=== PATIENT | male | born 2000 | race Caucasian/White ===

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

== ENCOUNTER 2023-04-05 21:15 | Observation (INO) | payer BC ==
[2023-04-05] MEDS ORDERED: fentaNYL PF 100 MCG/2 ML SYRINGE ONE (21:41)
[2023-04-05] MEDS ORDERED: Midazolam HCl 2 mg/2 ml Vial ONE (21:41)
[2023-04-05] MEDS ORDERED: SUGAMMADEX SODIUM 200 MG/2 ML VIAL ONE (21:41)
[2023-04-05] MEDS ORDERED: PHENYLEPHRINE-NS 100 MCG/ML 10 ML SYRINGE ONE (21:47)
[2023-04-05] MEDS ORDERED: PROPOFOL 200 MG/20 ML VIAL ONE (21:47)
[2023-04-05] MEDS ORDERED: Rocuronium Bromide 10 MG/ML (10ML VIAL) ONE (21:47)
[2023-04-05] MEDS ORDERED: GLYCOPYRROLATE/PF 0.2 MG/ML VIAL ONE (21:47)
[2023-04-05] MEDS ORDERED: Ondansetron PF 4 MG/2 ML Vial ONE (21:47)
[2023-04-05] MEDS ORDERED: Succinylcholine 200 MG/10 ml SYRINGE FS ONE (21:47)
[2023-04-05] MEDS ORDERED: Dexamethasone 20 MG/5 ML VIAL ONE (21:47)
[2023-04-05] MEDS ORDERED: Lidocaine 1% PF 5 ML VIAL ONE (21:47)
[2023-04-05] MEDS ORDERED: Ketorolac Tromethamine 30 MG/ML VIAL ONE (21:47)
[2023-04-05] MEDS ORDERED: Bupivacaine HCl 0.5%/Epinephrine 1:200,000/PF 30 ml Vial ONE (22:04)
[2023-04-05] MEDS ORDERED: Dextrose 5% in Water 1,000 ML IV PRN (22:46)
[2023-04-05] MEDS ORDERED: Ondansetron PF 4 MG/2 ML Vial IVP PRN (22:46)
[2023-04-05] MEDS ORDERED: Promethazine HCl 25 MG/ML VIAL IM PRN ×2 (22:46→23:00)
[2023-04-05] MEDS ORDERED: Calcium Carbonate 500 MG ChewTAB PO PRN (22:46)
[2023-04-05] MEDS ORDERED: Glucagon 1 MG/ML KIT IM PRN (22:46)
[2023-04-05] MEDS ORDERED: Ipratropium/Albuterol 3 ML NEB NEB PRN (22:46)
[2023-04-05] MEDS ORDERED: Morphine 2 MG/ML VIAL SLOW IVP PRN (22:46)
[2023-04-05] MEDS ORDERED: Morphine 4 MG/ML VIAL SLOW IVP PRN (22:46)
[2023-04-05] MEDS ORDERED: Mag-Al 1200 mg/1200 mg/30 ML UDCUP PO PRN (22:46)
[2023-04-05] MEDS ORDERED: hydrALAZINE 20 MG/ML VIAL SLOW IVP PRN (22:46)
[2023-04-05] MEDS ORDERED: Dextrose 50% Abboject 50 ML SYRINGE SLOW IVP PRN (22:46)
[2023-04-05] MEDS ORDERED: Ondansetron HCl/PF 4 MG/2 ML Vial IVP PRN (23:00)
[2023-04-05] MEDS ORDERED: fentaNYL 50 mcg/mL 1 mL Vial ONE ×3 (23:01→23:22)
[2023-04-06 00:03] VITALS: BMI 31.6
[2023-04-06] MEDS: Acetaminophen 325 MG TAB PO PRN ×2 (03:49→09:14)
[2023-04-06 03:59] VITALS: TEMP 97.8
[2023-04-06 08:43] VITALS: BP 119/68
[2023-04-06] MEDS ORDERED: Famotidine 20 MG TAB PO SCH (09:00)
[2023-04-06] MEDS ORDERED: Famotidine/PF 20 mg/2ml Vial SLOW IVP SCH (09:00)
[2023-04-06] MEDS ORDERED: Docusate 100 MG CAP PO SCH (09:00)
== END 2023-04-06 10:30 | disposition home or self-care (01) ==
LOC: SDC 21:15 → SURG B 22:46
PROVIDERS: ADMIT Surgery; ATTEND Surgery
PROC: 0DTJ4ZZ Resection of Appendix, Percutaneous Endoscopic Approach (ICD-10-PCS; principal; 2023-04-05)
DX: K35.80 Unspecified acute appendicitis (principal); I10 Essential (primary) hypertension; F17.200 Nicotine dependence, unspecified, uncomplicated; Z79.899 Other long term (current) drug therapy; Z88.0 Allergy status to penicillin; Z88.2 Allergy status to sulfonamides
CPT/HCPCS: 88304; A4649; J1100; J1885; J2250; J2405; J2704; J3010; J3490

== ENCOUNTER 2025-07-04 15:47 | Emergency (ER) | payer OTHER, BC ==
[2025-07-04 18:44] LABS: #Basophils 0.05 10x3/uL (0.0-0.2); #Eosinophils 0.13 10x3/uL (0.0-0.7); #Monocytes 0.51 10x3/uL (0.11-0.59); #Neutrophils 6.05 10x3/uL (1.40-6.50); %Basophils 0.6 % (0.0-1.0); %Eosinophils 1.5 % (0.0-10.0); %Lymphocytes 24.4 % (21.0-51.0); %Monocytes 5.7 % (0.0-10.0); %Neutrophils 67.6 % (42.0-75.0); Hematocrit 48.7 % (42.0-52.0); Hemoglobin 16.8 g/dL (14.0-18.0); Mean Corpuscular Hemoglobin 30.1 pg (27.0-31.0); Mean Corpuscular Volume 87.1 fL (78.0-98.0); Platelet Count 227 10x3/uL (130-400); Red Blood Cell (RBC) Count 5.59 mill/uL (4.70-6.10); White Blood Cell (WBC) Count 8.94 10x3/uL (4.8-10.8)
[2025-07-04 19:01] LABS: INR-International Normal Ratio 1.2; Prothrombin Time 15.7 sec (12.0-14.7)
[2025-07-04 19:02] LABS: PTT 28.9 sec (22.9-36.1)
[2025-07-04 19:38] LABS: ALT (SGPT) 76 U/L (Less than 45); AST (SGOT) 33 U/L (11-34); Albumin 5.0 g/dL (3.1-4.5); Alkaline Phosphatase 49 U/L (40-110); Anion Gap 15 mmol/L (10-20); BUN (Urea Nitrogen) 16 mg/dL (8.9-20.6); Bilirubin, Total 1.1 mg/dL (0.3-1.2); Calc. Creatinine Clearance 0 mL/min (70-130); Calcium 10.3 mg/dL (7.8-10.44); Carbon Dioxide 24 mmol/L (22-29); Chloride 105 mmol/L (98-107); Globulin 2.9 g/dL (2.4-3.5); Glucose 93 mg/dL (70-105); Potassium 4.9 mmol/L (3.5-5.1); Sodium 139 mmol/L (136-145)
[2025-07-04] MEDS ORDERED: Acetaminophen 500 MG TAB ONE (19:39)
== END 2025-07-04 19:57 | disposition home or self-care (01) ==
LOC: ERS 15:47
DX: S09.90XA Unspecified injury of head, initial encounter (principal); I10 Essential (primary) hypertension; F17.290 Nicotine dependence, other tobacco product, uncomplicated; I48.91 Unspecified atrial fibrillation; Z79.899 Other long term (current) drug therapy; Z79.01 Long term (current) use of anticoagulants; Z86.718 Personal history of other venous thrombosis and embolism; W22.8XXA Striking against or struck by other objects, initial encounter; Y93.89 Activity, other specified
CPT/HCPCS: 36415; 70450; 80053; 85025; 85610; 85730